=== PATIENT | female | born 1990 | race Caucasian/White ===

== ENCOUNTER 2016-11-26 10:57 | Emergency (ER) | payer BC ==
[~2016-11-26] VITALS: Ht 162.6 cm; Wt 81.2 kg
[2016-11-26] MEDS ORDERED: PNVPAK (11:35)
[2016-11-26] MEDS ORDERED: FLUTI44I INH (11:35)
[2016-11-26] MEDS ORDERED: ALBU1.25 NEB (11:35)
[2016-11-26] MEDS ORDERED: MONT10TA2 PO (11:35)
[2016-11-26] MEDS ORDERED: SALM50I INH (11:35)
[2016-11-26] MEDS ORDERED: CLAR10CA3 PO (11:35)
--- NOTE | 2016-11-26 12:18 | PD ---
HPI Chief Complaint Lower abdominal pain Date Seen: Nov 26, 2016 Travel History International Travel<30 Days: No Contact w/Intl Traveler<30Days: No Known Affected Area: No History of Present Illness HPI G1 at 38w 5d with c/o lower abdominal pain since 0200. Patient reports pain as dull, crampy. Denies ctxs/LOF/VB. Reports last cervical exam in office as FT dilated. Denies urinary/bowel problems. Para: 0 : 1 History Past Medical History Narrative Medical Asthma- no recents exaccerbations Past Surgical History Surgical History: No Previous Surgery Family History Family History: Negative Social History Alcohol Use: No Tobacco Use: No Substance Abuse: No Allergies-Medications Comments NKDA Home Meds Reported Medications W/O Vit A W/ Fe Carbo (Pnv Ob+Dha 27-1 & 250 mg)1 Anshul Anshul 11/26/16 Montelukast (Singulair)10 Mg Tab10 Mg PO HS #30 TAB Ref 0 11/26/16 Albuterol Neb 1.25 Mg/3 Ml Neb1.25 Mg NEB Q4HR NEB PRN (SHORTNESS OF BREATH) # 50 NEBULE Ref 0 11/26/16 Loratadine (Claritin)10 Mg Cap10 Mg PO DAILY Ref 0 11/26/16 Fluticasone 10.6 GM Inh (Flovent Hfa 10.6 GM Inh)44 Mcg/Act Inh2 Puff INH BID # 1 INHALER Ref 0 Use daily at the same time. 11/26/16 Salmeterol Inh (Serevent Diskus Inh)50 Mcg/Act Aero50 Mcg INH BID #1 INHALER Ref 0 11/26/16 Physical Exam Narrative GENERAL: Well-nourished, well-developed patient. SKIN: Warm and dry. HEAD: Normocephalic and atraumatic. EYES: No scleral icterus. No injection or drainage. ENT: No nasal drainage noted. Mucous membranes pink. Airway patent. NECK: Supple, trachea midline. No JVD. CARDIOVASCULAR: Regular rate and rhythm without murmurs, gallops, or rubs. RESPIRATORY: Breath sounds equal bilaterally. No accessory muscle use. BREASTS: Bilateral exam showed no masses , no retractions, no nipple discharge. ABDOMEN/GI: Abdomen soft, non-tender, bowel sounds present, no rebound, no guarding Gravid to [-] weeks size Fundal Height: [-] GENITOURINARY: External Genitalia: intact and normal in appearance BUS glands: [-] Cervix: [-] Dilatation: [FT] Effacement: [20] Station: [-3] Presentation: [-] Membranes: [intact or ruptured] Uterine Contractions: [irritibility] FHT's: Category: [1] Baseline: [130s] Reactive: [reactive] Variability: [moderate] Decels: [none] EXTREMITIES: No cyanosis or edema. BACK: Nontender without obvious deformity. No CVA tenderness. NEUROLOGICAL: Awake and alert. Motor and sensory grossly within normal limits. Five out of 5 muscle strength in all muscle groups. Normal speech. Data Data Vital Signs Reviewed: Yes Orders Unable to void, voided prior to arrival MDM Interpretation(s) IUP at 38w 5d with lower abdominal pain Plan Will d/c home with labor precautions. Patient to keep schedule appt with OB provider in 2 days. All questions answered. Diagnosis Diagnosis: Primary Impression: 38 weeks gestation of Additional Impressions: Abdominal pain during in third trimester False labor after 37 completed weeks of gestation Disposition: 01 DISCHARGE HOME Alexandrea Coreas MD Nov 26, 2016 12:18
[2016-11-26 13:35] LABS: BLOOD, URINE NEG (NEG); COMMENT (UR) CULT NOT INDICATED; CULTURE IF INDICATED CULT NOT INDICATED; GLUCOSE,URINE NEG (NEG); KETONE, URINE NEG (NEG); MUCUS URINE FEW /lpf (OCC); NITRITE,URINE NEG (NEG); PH, URINE 6.5 (5.0-8.5); SQUAMOUS EPITHELIAL CELL URINE <1 /hpf (0-5); URINE COLOR LIGHT-YELLOW (YELLW/STRAW)
== END 2016-11-26 13:00 | disposition home or self-care (01) ==
LOC: HOBED 10:57
DX: O26.893 Other specified pregnancy related conditions, third trimester (principal); R10.9 Unspecified abdominal pain; Z3A.38 38 weeks gestation of pregnancy
CPT/HCPCS: 59025; 81001

== ENCOUNTER 2016-11-26 21:48 | Emergency (ER) | payer BC ==
[~2016-11-26 21:48] MED LIST: ALBU1.25 NEB; CLAR10CA3 PO; FLUTI44I INH; MONT10TA2 PO; PNVPAK; SALM50I INH
--- NOTE | 2016-11-26 22:15 | PD ---
HPI Travel History International Travel<30 Days: No Contact w/Intl Traveler<30Days: No Known Affected Area: No History of Present Illness HPI G1 at 38w 5d presenting with c/o lower abdominal cramping. Patient seen earlier today with similar complaints. Denies LOF/VB. Reports good FM. Para: 0 : 1 Last Menstrual Period: Nov 26, 2016 History Past Medical History Medical History: Denies Significant Hx Past Surgical History Surgical History: No Previous Surgery Family History Family History: Negative Social History Alcohol Use: No Tobacco Use: No Substance Abuse: No Allergies-Medications Home Meds Reported Medications W/O Vit A W/ Fe Carbo (Pnv Ob+Dha 27-1 & 250 mg)1 Anshul Anshul 11/26/16 Montelukast (Singulair)10 Mg Tab10 Mg PO HS #30 TAB Ref 0 11/26/16 Albuterol Neb 1.25 Mg/3 Ml Neb1.25 Mg NEB Q4HR NEB PRN (SHORTNESS OF BREATH) # 50 NEBULE Ref 0 11/26/16 Loratadine (Claritin)10 Mg Cap10 Mg PO DAILY Ref 0 11/26/16 Fluticasone 10.6 GM Inh (Flovent Hfa 10.6 GM Inh)44 Mcg/Act Inh2 Puff INH BID # 1 INHALER Ref 0 Use daily at the same time. 11/26/16 Salmeterol Inh (Serevent Diskus Inh)50 Mcg/Act Aero50 Mcg INH BID #1 INHALER Ref 0 11/26/16 Physical Exam AFVSS BP 122/76 Narrative GENERAL: Well-nourished, well-developed patient. SKIN: Warm and dry. HEAD: Normocephalic and atraumatic. EYES: No scleral icterus. No injection or drainage. ENT: No nasal drainage noted. Mucous membranes pink. Airway patent. NECK: Supple, trachea midline. No JVD. CARDIOVASCULAR: Regular rate and rhythm without murmurs, gallops, or rubs. RESPIRATORY: Breath sounds equal bilaterally. No accessory muscle use. BREASTS: Bilateral exam showed no masses , no retractions, no nipple discharge. ABDOMEN/GI: Abdomen soft, non-tender, bowel sounds present, no rebound, no guarding Gravid to [-] weeks size Fundal Height: [-] GENITOURINARY: External Genitalia: intact and normal in appearance BUS glands: [-] Cervix: [no change analyst 1-2 hours per RN exam] Dilatation: [1] Effacement: [60] Station: [3] Presentation: [-] Membranes: [intact or ruptured] Uterine Contractions: [irregular] FHT's: Category: [1] Baseline: [130s] Reactive: [reactive] Variability: [moderate] Decels: [none] EXTREMITIES: No cyanosis or edema. BACK: Nontender without obvious deformity. No CVA tenderness. NEUROLOGICAL: Awake and alert. Motor and sensory grossly within normal limits. Five out of 5 muscle strength in all muscle groups. Normal speech. Data Data Vital Signs Reviewed: Yes MDM Interpretation(s) IUP at 38w 5d, irregular contractions Plan Will monitor patient and recheck. If no cervical change, will d/c home. All questions answered. Vistaril 50mg given prior to d/c. Diagnosis Diagnosis: Primary Impression: 38 weeks gestation of Additional Impression: Irregular uterine contractions Disposition: DISCHARGE HOME Condition: Good Alexandrea Coreas MD Nov 26, 2016 22:15
== END 2016-11-27 10:23 | disposition home or self-care (01) ==
LOC: HOBED 21:48
DX: O62.2 Other uterine inertia (principal); Z3A.38 38 weeks gestation of pregnancy
CPT/HCPCS: 59025

== ENCOUNTER 2016-11-28 08:44 | Inpatient (IN) | payer BC ==
[2016-11-28] VITALS (53 sets, daily range): BP systolic 97–147; BP diastolic 50–99; PULSE 50–145; RESP 16–20; TEMP 98.1–98.4; O2SAT 94–100
[~2016-11-28] VITALS: Ht 162.6 cm; Wt 81.0 kg
[2016-11-28] MEDS ORDERED: LACTATED RINGER'S 1000 ML INJ 1,000 ML IV SCH (09:35)
--- NOTE | 2016-11-28 09:35 | HHI.HP ---
HPI Chief Complaint Contraction pain for the last 40 hours Date Seen: Nov 28, 2016 Travel History International Travel<30 Days: No Contact w/Intl Traveler<30Days: No Known Affected Area: No History of Present Illness HPI Patient is 26-year-old white female at [address] Gomez for care presents complaining of contraction pain the last 48 hours this been in her words nonstop, she denies bleeding or ruptured membranes. Baby is active heart rate tracing is reactive and her contractions are not showing up well on the monitor. Para: 0 : 1 History Past Medical History Medical History: Denies Significant Hx Allergies-Medications (Allergen,Severity, Reaction): Coded Allergies: No Known Allergies (Unverified , 11/27/16) Home Meds Reported Medications W/O Vit A W/ Fe Carbo (Pnv Ob+Dha 27-1 & 250 mg)1 Anshul Anshul 11/26/16 Montelukast (Singulair)10 Mg Tab10 Mg PO HS #30 TAB Ref 0 11/26/16 Albuterol Neb 1.25 Mg/3 Ml Neb1.25 Mg NEB Q4HR NEB PRN (SHORTNESS OF BREATH) # 50 NEBULE Ref 0 11/26/16 Loratadine (Claritin)10 Mg Cap10 Mg PO DAILY Ref 0 11/26/16 Fluticasone 10.6 GM Inh (Flovent Hfa 10.6 GM Inh)44 Mcg/Act Inh2 Puff INH BID # 1 INHALER Ref 0 Use daily at the same time. 11/26/16 Salmeterol Inh (Serevent Diskus Inh)50 Mcg/Act Aero50 Mcg INH BID #1 INHALER Ref 0 11/26/16 Review of Systems General / Constitutional: No: Fever, Weight Gain, Chills, Other Eyes: No: Diploplia, Blurred Vision, Visual changes, Pain, Photophobia HENT: No: Headaches, Vertigo, Lightheadedness Cardiovascular: No: Irregular Rhythm, Chest Pain or Discomfort, Palpitations, Tachycardia, Syncope, Varicosities, Edema, Cyanosis Respiratory: No: Cough, Short of Breath, Other Gastrointestinal: No: Nausea, Vomiting, Diarrhea Genitourinary: No: Decreased Urinary Output, Oliguria Musculoskeletal: No: Limited ROM, Weakness, Cramping, Edema, Pain Skin: No Rash, No Itching, No Dryness, No Lumps, No Change in Pigmentation, No Change in Nails, No Alopecia, No Lesions Neurologic: No: Weakness, Dizziness, Syncope, Focal Abnormalities, Coordination Problem, Headache, Slurred Speech, Seizures Psychiatric: No: Depression, Suicidal Ideations, Homicidal Ideation Endocrine: No: Heat Intolerance, Cold Intolerance, Polydipsia, Polyuria, Other Physical Exam Narrative GENERAL: Well-nourished, well-developed patient. SKIN: Warm and dry. HEAD: Normocephalic and atraumatic. EYES: No scleral icterus. No injection or drainage. ENT: No nasal drainage noted. Mucous membranes pink. Airway patent. NECK: Supple, trachea midline. No JVD. CARDIOVASCULAR: Regular rate and rhythm without murmurs, gallops, or rubs. RESPIRATORY: Breath sounds equal bilaterally. No accessory muscle use. BREASTS: Bilateral exam showed no masses , no retractions, no nipple discharge. ABDOMEN/GI: Abdomen soft, non-tender, bowel sounds present, no rebound, no guarding Gravid to [38-] weeks size Fundal Height: [38-] GENITOURINARY: External Genitalia: intact and normal in appearance BUS glands: [-] Cervix: [-] Dilatation: [-4] Effacement: [100-] Station: [0] Presentation: [-vtx] Membranes: [intact ] Uterine Contractions: [reg-] FHT's: Category: [-1] Baseline: [133-] Reactive: [yes-] Variability: [-mod] Decels: [none-] EXTREMITIES: No cyanosis or edema. BACK: Nontender without obvious deformity. No CVA tenderness. NEUROLOGICAL: Awake and alert. Motor and sensory grossly within normal limits. Five out of 5 muscle strength in all muscle groups. Normal speech. Assessment/Plan Assessment and Plan This patient is 26-year-old white female at 39 weeks presents complaining of contraction pain for 1-2 days. No bleeding or rupture the membranes heart rate tracing is reactive contractions not showing well-developed on the monitor however her cervix is 4 cm 100 percent effaced and 0 station at this time. And admit for labor anticipate vaginal delivery Sachin Capellan II, MD Nov 28, 2016 09:35
[2016-11-28] MEDS ORDERED: LIDOCAINE HCL 1% 50 ML VIAL INFIL PRN (09:45)
[2016-11-28] MEDS ORDERED: LIDOCAINE HCL 1% 50 ML VIAL I-DERMAL PRN (09:45)
[2016-11-28] MEDS ORDERED: MINERAL OIL 10 ML VIAL TOPICAL PRN (09:45)
[2016-11-28] MEDS ORDERED: OXYTOCIN 30 UNITS-500ML PREMIX 500 ML IV ONE (09:45)
[2016-11-28] MEDS ORDERED: SODIUM CHLORID 0.9% 500 ML INJ 500 ML IV PRN (09:45)
[2016-11-28] MEDS ORDERED: CITRIC ACID-SODIUM CITRATE LIQ 30 ML UDC PO SCH (09:45)
[2016-11-28] MEDS ORDERED: SODIUM CHLOR 0.9% 1000 ML INJ 1,000 ML IV PRN (09:55)
[2016-11-28 10:38] LABS: BACTERIA, URINE RARE /hpf; BLOOD, URINE TRACE (NEG); COMMENT (UR) CULTURE INDICATED; CULTURE IF INDICATED CULTURE INDICATED; GLUCOSE,URINE NEG (NEG); KETONE, URINE NEG (NEG); MUCUS URINE FEW /lpf (OCC); NITRITE,URINE NEG (NEG); PH, URINE 6.5 (5.0-8.5); SQUAMOUS EPITHELIAL CELL URINE 2 /hpf (0-5); URINE COLOR LIGHT-YELLOW (YELLW/STRAW)
[2016-11-28 10:49] LABS: AUTOMATED NEUTROPHIL # 11.3 TH/MM3 (1.8-7.7); BASOPHIL % 0.2 % (0.0-2.0); EOSINOPHIL % 0.1 % (0.0-4.0); HEMATOCRIT 35.5 % (35.0-46.0); HEMO FLAGS DIFF FINAL; LYMPH % 10.1 % (9.0-44.0); LYMPHOCYTE # 1.4 TH/MM3 (1.0-4.8); MEAN CORPUSCULAR HEMOGLOBIN 28.6 PG (27.0-34.0); MEAN CORPUSCULAR HGB CONC 34.1 % (32.0-36.0); MONO % 6.2 % (0.0-8.0); NEUT % 83.4 % (16.0-70.0); PLATELET COUNT 179 TH/MM3 (150-450); RED BLOOD COUNT 4.23 MIL/MM3 (4.00-5.30); RED CELL DISTRIBUTION WIDTH 13.5 % (11.6-17.2); WHITE BLOOD COUNT 13.5 TH/MM3 (4.0-11.0)
[2016-11-28] MEDS: LACTATED RINGER'S 1000 ML INJ 1,000 ML IV PRN ×2 (11:27→14:26)
[2016-11-28] MEDS ORDERED: fentaNYL 2MCG-BUPIV 0.125% INJ 100 ML ONE (11:32)
[2016-11-28] MEDS ORDERED: ePHEDrine/NS 25 MG/5 ML SYR ONE (11:33)
[2016-11-28] MEDS ORDERED: fentaNYL 2MCG-BUPIV 0.125% 100 ML EPIDURAL SCH (13:15)
[2016-11-28] MEDS ORDERED: OXYTOCIN 30 UNITS-500ML PREMIX 500 ML IV SCH (13:15)
[2016-11-28] MEDS ORDERED: ePHEDrine/NS 25 MG/5 ML SYR IV PRN (13:15)
[2016-11-28] MEDS ORDERED: NO SYSTEM NARCOTICS XX PRN (13:15)
[2016-11-28] MEDS ORDERED: DO NOT ADMINISTER ANTICOAGULANTS XX PRN (13:15)
[2016-11-28] MEDS ORDERED: DOCUSATE SODIUM 50 MG/SENNA 8.6 MG TAB PO PRN (18:30)
[2016-11-28] MEDS ORDERED: oxyCODONE/ACETAMINOPHEN 5 MG/325 MG TAB PO PRN (18:30)
[2016-11-28] MEDS ORDERED: ONDANSETRON ODT 4 MG TAB PO PRN (18:30)
[2016-11-28] MEDS ORDERED: ALUMINUM/MAGNESIUM/SIMETH 30 ML CUP PO PRN (18:30)
[2016-11-28] MEDS ORDERED: BENZOCAINE 20% TOPICAL SPRAY 60 ML CAN TOPICAL PRN (18:30)
[2016-11-28] MEDS ORDERED: WITCH HAZEL 50%/GLYCERIN 12.5% 40 PAD JAR TOPICAL PRN (18:30)
[2016-11-28] MEDS ORDERED: SODIUM CHLORIDE 0.9% FLUSH 5 ML FLUSH IV PRN (18:30)
[2016-11-28] MEDS ORDERED: ACETAMINOPHEN 325 MG TAB PO PRN (18:30)
[2016-11-28] MEDS ORDERED: OXYTOCIN 10 UNIT/ML AMP XX PRN (18:30)
--- NOTE | 2016-11-28 18:30 | PD.OB.DELI ---
Anesthesia: Epidural Episiotomy: None Vaginal Delivery: Normal Presentation: Occiput anterior, Compound (left UE) Nuchal Cord: None Delayed cord clamping (45 sec): Yes Shoulder Dystocia: Woo maneuver done : Male One Minute : 8 Five Minute : 9 Care: Suctioned, Spontaneous crying, Responded to stimulation Placenta: Spontaneous delivery, Intact, 3 vessel cord Laceration: Vaginal laceration, 1 deg (right labial/vaginal) Repair: Vicryl Julio Alcala MD Nov 28, 2016 18:30
[2016-11-28] MEDS ORDERED: MEASLES, MUMPS, RUBELLA VACCINE 0.5 ML VIAL SQ ONE (19:00)
[2016-11-28] MEDS ORDERED: DIPHTH/TETANUS/ACEL PERTUSSIS (BOOSTER) 0.5 ML VIAL/PFS IM ONE (19:00)
[2016-11-28] MEDS ORDERED: ZOLPIDEM TARTRATE 5 MG TAB PO PRN (21:00)
[2016-11-28] MEDS ORDERED: SODIUM CHLORIDE 0.9% FLUSH 5 ML FLUSH IV SCH (21:00)
[2016-11-29] VITALS: BP 89/45; PULSE 65; RESP 18; TEMP 98.2
[2016-11-29] MEDS: IBUPROFEN 600 MG TAB PO PRN (03:27)
[2016-11-29 08:34] VITALS: BP 120/70; PULSE 82; RESP 18; TEMP 98
--- NOTE | 2016-11-29 09:48 | HHI.OB ---
Subjective Post Day: 1 Remarks doing well, mod lochia Objective Vitals/I&O Vital Signs Date Time Temp Pulse Resp B/P Pulse Ox O2 Delivery O2 Flow Rate FiO2 11/29/16 08:34 82 18 120/70 11/29/16 08:34 98.0 11/29/16 00:00 98.2 65 18 89/45 11/28/16 19:03 18 11/28/16 19:00 78 116/76 11/28/16 18:55 18 11/28/16 18:45 80 116/78 11/28/16 18:40 18 11/28/16 18:40 98.4 11/28/16 18:31 82 125/70 11/28/16 18:30 18 11/28/16 17:45 93 120/77 11/28/16 17:31 79 124/69 11/28/16 17:13 145 133/83 11/28/16 17:00 98.2 11/28/16 17:00 80 116/90 11/28/16 16:59 16 11/28/16 16:45 79 111/63 11/28/16 16:30 71 116/72 11/28/16 16:16 73 110/72 11/28/16 16:01 75 147/83 11/28/16 15:45 57 126/71 11/28/16 15:30 60 98/60 11/28/16 15:15 61 108/55 11/28/16 15:01 55 98/50 11/28/16 15:00 16 11/28/16 14:45 59 122/76 11/28/16 14:30 57 107/54 11/28/16 14:22 98.1 16 11/28/16 14:15 59 104/53 11/28/16 14:00 55 100/55 11/28/16 13:56 63 97/60 11/28/16 13:53 16 11/28/16 13:51 50 116/64 11/28/16 13:20 58 117/64 11/28/16 13:16 76 113/90 11/28/16 13:15 17 11/28/16 13:15 72 11/28/16 13:15 100 11/28/16 13:10 56 11/28/16 13:10 72 124/88 11/28/16 13:10 100 11/28/16 13:05 100 11/28/16 13:05 69 127/83 11/28/16 13:05 64 11/28/16 13:00 74 122/78 11/28/16 13:00 100 11/28/16 13:00 57 11/28/16 12:55 64 11/28/16 12:55 73 130/78 11/28/16 12:55 99 11/28/16 12:50 94 11/28/16 12:50 137 125/84 11/28/16 12:50 65 11/28/16 12:46 92 130/65 11/28/16 12:45 64 11/28/16 12:45 16 11/28/16 12:45 100 11/28/16 12:40 100 11/28/16 12:40 64 115/66 11/28/16 12:40 51 11/28/16 12:35 62 117/68 11/28/16 12:35 56 11/28/16 12:35 100 11/28/16 12:30 60 112/66 11/28/16 12:30 100 11/28/16 12:30 55 11/28/16 12:30 16 11/28/16 12:25 61 112/65 11/28/16 12:25 100 11/28/16 12:25 56 11/28/16 12:20 67 115/69 11/28/16 12:20 100 11/28/16 12:20 59 11/28/16 12:15 100 11/28/16 12:15 70 11/28/16 12:15 64 121/73 11/28/16 12:10 87 104/91 11/28/16 12:10 100 11/28/16 12:10 91 11/28/16 12:08 87 137/96 11/28/16 12:07 93 139/96 11/28/16 12:05 100 11/28/16 12:05 91 139/99 11/28/16 12:05 89 11/28/16 12:00 18 11/28/16 12:00 84 11/28/16 12:00 80 128/93 11/28/16 12:00 100 11/28/16 11:57 71 122/78 11/28/16 11:17 67 127/81 11/28/16 10:15 98.4 20 Objective Remarks GENERAL: Well-nourished, well-developed patient. CARDIOVASCULAR: Regular rate and rhythm without murmurs, gallops, or rubs. RESPIRATORY: Breath sounds equal bilaterally. No accessory muscle use. ABDOMEN/GI: Abdomen soft, non-tender. Fundus: Firm, non-tender at umbilicus. GENITOURINARY: Light to moderate bleeding. EXTREMITIES: No cyanosis or edema, non-tender, without signs of DVT. Medications and IVs Current Medications Medications (Trade) Dose Ordered Sig/Omari Route Start Time Stop Time Status Last Admin Lactated Ringer's 1,000 ml @ 125 mls/hr Q8H IV 11/28/16 09:35 Lactated Ringer's 1,000 ml @ 3,000 mls/hr Q20M PRN IV 11/28/16 09:35 11/28/16 14:26 (NS 1000 ml Inj) 1,000 ml @ 100 mls/hr Q10H PRN IV 11/28/16 09:55 (fentaNYL INJ) 50 mcg Q1H PRN IV PUSH 11/28/16 09:45 (fentaNYL INJ) 100 mcg Q1H PRN IV PUSH 11/28/16 09:45 (Muri-Lube Oil) 10 ml UNSCH PRN TOPICAL 11/28/16 09:45 11/28/16 18:39 Miscellaneous Information No systemic narcotics to be given except... UNSCH PRN XX 11/28/16 13:15 11/29/16 13:14 Miscellaneous Information DO NOT ADMINISTER ANY ANTICOAGUL... UNSCH PRN XX 11/28/16 13:15 11/29/16 13:14 (fentaNYL 2MCG-BUPIV 0.125% INJ) 100 ml @ 0 mls/hr TITRATE EPIDURAL 11/28/16 13:15 Ephedrine Sulfate 10 mg 10 mg UNSCH PRN IV 11/28/16 13:15 11/29/16 13:14 (Pitocin 30 Units-NS 500 ml Premix) 500 ml @ 0 mls/hr TITRATE IV 11/28/16 13:15 11/28/16 13:47 (NS Flush) 2 ml BID IV 11/28/16 21:00 (NS Flush) 2 ml UNSCH PRN IV 11/28/16 18:30 (Tylenol) 650 mg Q4H PRN PO 11/28/16 18:30 (Motrin) 600 mg Q6H PRN PO 11/28/16 18:30 11/29/16 03:27 (Percocet 5-325 Mg) 1 tab Q4H PRN PO 11/28/16 18:30 (Americaine 20% Top Spr) 1 spray Q4H PRN TOPICAL 11/28/16 18:30 11/28/16 20:45 (Tucks Pads) 1 applic QID PRN TOPICAL 11/28/16 18:30 11/28/16 20:45 (Alivia-Colace) 2 tab Q12H PRN PO 11/28/16 18:30 (Ambien) 5 mg HS PRN PO 11/28/16 21:00 (Mag-Al Plus Susp Liq) 15 ml Q8H PRN PO 11/28/16 18:30 (Zofran Odt) 4 mg Q6H PRN PO 11/28/16 18:30 Assessment/Plan Assessment and Plan This patient is 26-year-old white female s/p at 39 weeks PPD - 1 cont routine care circ today Julieth Sanabria MD Nov 29, 2016 09:48
[2016-11-30] MEDS: IBUPROFEN 600 MG TAB PO PRN ×2 (00:56→08:04)
[2016-11-30 08:00] VITALS: BP 121/74; PULSE 97; RESP 18; TEMP 98.4
--- NOTE | 2016-11-30 08:03 | HHI.OB ---
Subjective Post Day: 1 Remarks doing well PPD 1 nursing no issues Objective Vitals/I&O Vital Signs Date Time Temp Pulse Resp B/P Pulse Ox O2 Delivery O2 Flow Rate FiO2 11/29/16 08:34 82 18 120/70 11/29/16 08:34 98.0 Objective Remarks GENERAL: Well-nourished, well-developed patient. CARDIOVASCULAR: Regular rate and rhythm without murmurs, gallops, or rubs. RESPIRATORY: Breath sounds equal bilaterally. No accessory muscle use. ABDOMEN/GI: Abdomen soft, non-tender. Fundus: Firm, non-tender at umbilicus. GENITOURINARY: Light to moderate bleeding. EXTREMITIES: No cyanosis or edema, non-tender, without signs of DVT. Medications and IVs Current Medications Medications (Trade) Dose Ordered Sig/Omari Route Start Time Stop Time Status Last Admin Lactated Ringer's 1,000 ml @ 125 mls/hr Q8H IV 11/28/16 09:35 Lactated Ringer's 1,000 ml @ 3,000 mls/hr Q20M PRN IV 11/28/16 09:35 11/28/16 14:26 (NS 1000 ml Inj) 1,000 ml @ 100 mls/hr Q10H PRN IV 11/28/16 09:55 (fentaNYL INJ) 50 mcg Q1H PRN IV PUSH 11/28/16 09:45 (fentaNYL INJ) 100 mcg Q1H PRN IV PUSH 11/28/16 09:45 Mineral Oil 10 ml 10 ml UNSCH PRN TOPICAL 11/28/16 09:45 11/28/16 18:39 Fentanyl/ Bupivacaine HCl 100 ml @ 0 mls/hr TITRATE EPIDURAL 11/28/16 13:15 (Pitocin 30 Units-NS 500 ml Premix) 500 ml @ 0 mls/hr TITRATE IV 11/28/16 13:15 11/28/16 13:47 (NS Flush) 2 ml BID IV 11/28/16 21:00 (NS Flush) 2 ml UNSCH PRN IV 11/28/16 18:30 (Tylenol) 650 mg Q4H PRN PO 11/28/16 18:30 (Motrin) 600 mg Q6H PRN PO 11/28/16 18:30 11/30/16 00:56 (Percocet 5-325 Mg) 1 tab Q4H PRN PO 11/28/16 18:30 (Americaine 20% Top Spr) 1 spray Q4H PRN TOPICAL 11/28/16 18:30 11/28/16 20:45 (Tucks Pads) 1 applic QID PRN TOPICAL 11/28/16 18:30 11/28/16 20:45 (Alivia-Colace) 2 tab Q12H PRN PO 11/28/16 18:30 11/30/16 00:56 (Ambien) 5 mg HS PRN PO 11/28/16 21:00 (Mag-Al Plus Susp Liq) 15 ml Q8H PRN PO 11/28/16 18:30 (Zofran Odt) 4 mg Q6H PRN PO 11/28/16 18:30 Assessment/Plan Assessment and Plan PPD 2 doing well home today Shahla Menjivar MD Nov 30, 2016 08:03
[2016-11-30] MEDS ORDERED: IBUP-232 PO (08:05)
--- NOTE | 2016-11-30 08:06 | HHI.DCPOC ---
Discharge Care Plan Report Symptoms to Your Doctor -Temperate above 100.5 degrees -Redness, of incision or excessive or foul smelling drainage -Unusual pain or calf pain -Increased vaginal bleeding -Painful or difficulty urinating -Feelings of extreme sadness or anxiety after 2 weeks Goals to Promote Your Health * To prevent worsening of your condition and complications * To maintain your health at the optimal level Directions to Meet Your Goals Take your medications as prescribed Follow your dietary instruction Follow activity as directed Ensure plenty of rest for recovery Drink fluids for hydration Keep your appointments as scheduled Take your immunizations and boosters as scheduled If your symptoms worsen call your PCP, if no PCP go to Urgent Care Center or Emergency Room Smoking is Dangerous to Your Health. Avoid second hand smoke Call the 24-hour crisis hotline for domestic abuse at Shahla Menjivar MD Nov 30, 2016 08:05
== END 2016-11-30 15:17 | disposition home or self-care (01) | DRG 775 ==
LOC: HOBED 08:44 → H2EA 09:37 → H1EA 20:03
PROVIDERS: ADMIT Obstetrics & Gynecology; ATTEND Obstetrics & Gynecology
PROC: 10E0XZZ Delivery of Products of Conception, External Approach (ICD-10-PCS; principal; 2016-11-28)
PROC: 0HQ9XZZ Repair Perineum Skin, External Approach (ICD-10-PCS; 2016-11-28)
DX: O66.0 Obstructed labor due to shoulder dystocia (principal); O70.0 First degree perineal laceration during delivery; Z3A.39 39 weeks gestation of pregnancy; Z37.0 Single live birth
CPT/HCPCS: 59025; 81001; 85025; 86900; 86901; 87086; 99285; J2590; J7120

== ENCOUNTER 2018-06-10 10:07 | Inpatient (IN) ==
--- NOTE | 2018-06-09 18:14 | MH ---
cc: Julio Olmedo MD DATE OF ADMISSION: 06/10/2018 HISTORY OF PRESENT ILLNESS: The patient is a 28-year-old female, 2, para 1, previous vaginal delivery in 2016 of a healthy male infant. The patient's course has been marked by breech presentation of this with developing oligohydramnios. The patient's previous JUAN was 6.98 on 06/04/2018 and followup study today revealed an JUAN of 2.5. The remainder of the biophysical profile was reactive and normal. Good movement is documented. Given the circumstances, this patient has been scheduled for a primary section due to oligohydramnios and breech presentation. The patient's obstetrical course notable for a diastasis pubis developing in the late third trimester, remedied by pelvic rest and physical therapy. The patient's group B strep status is negative. The patient's diabetic screening was normal. The patient's blood type is AB positive. Genetic testing was normal. ALLERGIES: NO KNOWN DRUG ALLERGIES. PAST MEDICAL HISTORY: He has a history of asthma that is well controlled. The patient uses Breo and Singulair with albuterol nebulizer as needed. PAST SURGICAL HISTORY: As stated above. Spontaneous vaginal delivery 11/2016 of a male weighing 7 pounds 4 ounces. FAMILY HISTORY: Noncontributory. SOCIAL HISTORY: The patient is and works as a physical therapist. Denies use of alcohol, tobacco, or illicit substances. PHYSICAL EXAMINATION: GENERAL: Well-appearing, well-nourished female, in no acute distress. VITAL SIGNS: Stable. Blood pressure is 120/80, pulse and respiratory rate are normal. heart tones are in the 140s. HEENT: Shows no adenopathy or thyromegaly. LUNGS: Clear in all perales. CARDIAC: Regular rate and rhythm. ABDOMEN: Gravid, full-term estimated weight is 8 pounds. Breech presentation confirmed by ultrasound. PELVIC: Cervix is closed. EXTREMITIES: Symmetrical, full range of motion. There is no cyanosis, clubbing, or edema. NEUROLOGIC: Grossly intact. ASSESSMENT AND PLAN: The patient is 38 weeks and 6 days today, will be scheduled for primary section tomorrow, 06/10, and she will be 39 weeks even. The patient is with oligohydramnios. No history of ruptured membranes. The patient's medical history is asthma controlled with the use of Breo 200 mg daily, Singulair, and Albuterol nebulizer as needed. MD ANGELITA Suh/addy , 05:37 PM , 05:45 PM
[2018-06-10] MEDS ORDERED: Citric Acid/Sodium Citrate Liq 30 ML UDC PO SCH (11:15)
[2018-06-10] MEDS ORDERED: Morphine Sulfate PF Inj 5 MG/10 ML Ampul ONE (11:36)
[2018-06-10 11:41] LABS: Baso % (Auto) 0.5 % (0.0-2.0); Eos # (Auto) 0.1 th/mm3 (0.0-0.4); Hematocrit 33.7 % (35.0-46.0); Hemoglobin 11.1 gm/dL (11.6-15.3); Lymph # (Auto) 1.6 th/mm3 (1.0-4.8); Lymph % (Auto) 19.6 % (9.0-44.0); Mean Corpuscular HGB Conc 32.9 % (32.0-36.0); Mean Corpuscular Hemoglobin 27.1 pg (27.0-34.0); Mean Corpuscular Volume 82.4 fL (80.0-100.0); Mean Platelet Volume 11.6 fL (7.0-11.0); Mono # (Auto) 0.7 th/mm3 (0.0-0.9); Mono % (Auto) 8.6 % (0.0-8.0); Neut # (Auto) 5.6 th/mm3 (1.8-7.7); Neut % (Auto) 70.3 % (16.0-70.0); Platelet Count 160 th/mm3 (150-450); Red Blood Count 4.09 mil/mm3 (4.00-5.30); Red Cell Distribution Width 14.4 % (11.6-17.2)
[2018-06-10] MEDS ORDERED: Phenylephrine/NS 1000 MCG/10ML Syringe IV.PUSH ONE (12:00)
[2018-06-10] MEDS ORDERED: Glycopyrrolate Inj 1 MG/5 ML Syringe IV.PUSH ONE (12:01)
[2018-06-10] MEDS ORDERED: Ketorolac Inj 30 MG/ML (IVP) Vial IV.PUSH ONE (12:40)
--- NOTE | 2018-06-10 13:02 | P.OBDELI ---
Procedure Note Performed by: Julio Olmedo MD Procedure: Primary Low Transverse Section Indication for Delivery: malposition (ashtyn breech) Informed Consent Obtained: For anesthesia, For procedure Confirmed Correct: Patient, Procedure, Site, Time-out taken Anesthesia: Spinal Medication Prior to Procedure: As documented in eMAR Monitoring During Procedure: Blood pressure monitoring, insurance office manager, doppler, Pulse oximetry Urinary Catheter: Inserted using sterile technique, To dependent drainage Sterile Preparation: Duraprep, In usual fashion Position: Supine with wedge to right side, Supine with safety belt applied - Operative Features Skin Incision: Pfannenstiel Uterine Incision: Low transverse w/knife / scissors Membranes Ruptured: Artificially Presentation: Breech Status of : Viable, Cord blood, Umbilical cord, Nursery present, Resuscitation required Placenta Delivered: Intact Medications: Antibiotics, Oxytocin Estimated blood loss (mL): 750 Procedure Tolerated: Well Maternal Condition: Stable Baby Complications: Respiratory distress, Other (nuchal cord x4) Baby Condition: Stable - Infant: Male Infant Delivery Date: 06/10/18 score (1 min): 7 score (5 min): 8
[2018-06-10 13:10] LABS: Cord Arterial Blood HCO3 20.8
[2018-06-10] MEDS ORDERED: Oxytocin 30 Units/500ml Premix 30 UNITS/500 ML BAG IV.SIG ONE (14:00)
--- NOTE | 2018-06-10 14:04 | MP ---
cc: Julio Olmedo MD DATE OF OPERATION: PREOPERATIVE DIAGNOSES: 1. Term intrauterine . 2. History of oligohydramnios. 3. Ashtyn breech presentation. 4. Maternal asthma. PROCEDURE PERFORMED: Primary low transverse section delivery of viable male , breech extraction. POSTOPERATIVE DIAGNOSES: 1. Term intrauterine . 2. History of oligohydramnios. 3. Ashtyn breech presentation. 4. Maternal asthma. ANESTHESIA: Spinal. ESTIMATED BLOOD LOSS: 750 mL DRAINS: Verma to gravity. OPERATIVE FINDINGS: Male delivered by ashtyn breech presentation; breech extraction, nuchal cord identified 4 times. Baby's 's were 7 at 1 minute and 8 at 5. Baby had difficulty with initial respiratory effort. NICU staff and family day care provider were present at the delivery. Three-vessel cord noted. Cord blood gas was sent. Results are pending. INDICATIONS FOR PROCEDURE: The patient was followed for decreasing amniotic fluid. Recent amniotic fluid index was 2.9 on 06/09/2018. Remaining assessment was normal. Infant was breech and elected for primary section. PROCEDURE: The patient received Ancef 2 grams prophylactically. She underwent a spinal anesthetic without complication. She was prepped and draped. Verma was inserted by sterile technique and she has sequentials placed on the lower extremities for VTE prophylaxis. After she was comfortably prepped and draped, a timeout was conducted, agreed by all present in the room. The patient had excellent pain control with the spinal. A Pfannenstiel incision was utilized, taking it through the skin down through the subcutaneous space to the fascia, which was then scored in the midline and extended laterally by sharp dissection, cauterizing any active bleeding with the Bovie. Muscles were in the midline. Peritoneum was identified sharply. Lower uterine segment was identified. There were large venous sinuses at the lower uterine segment. The peritoneum was then opened transversely, placing the bladder blade over the bladder flap. A transverse incision was made in the lower uterine segment. Compression of the sinuses was required. Entry into the uterine cavity was accomplished without difficulty. Light meconium stained fluid was noted. The incision was extended and then by breech extraction, the was delivered without complication. The cord was doubly clamped and cut after entanglement around the neck and then a segment was for cord blood gas. The infant was then taken to the [place] by the NICU staff present and the cord blood sample was obtained from the remaining umbilical cord. Placenta was removed intact with trailing membranes. The uterus was explored. There was no retained tissue. The uterus was then closed with a double layer, first was a running locking suture of 0-Monocryl, followed by a second imbricating suture of 0-Monocryl. Good result was noted. Pelvis was irrigated. All free of blood and clot, and fluid was aspirated and retrieved. Again, hemostasis was documented. A piece of Interceed was introduced and placed over the lower uterine segment to prevent adhesions postoperatively. The peritoneum was then closed with a running suture of 2-0 Monocryl. The muscle body was reapproximated with interrupted mattress suture of 2-0 Monocryl, and then the fascia was closed with 0-Vicryl. Subcutaneous space was reapproximated with a running suture of 2-0 Monocryl after confirming hemostasis, and then closing the skin with tam. Dressing was applied. The final count was correct. The patient was stable and the infant was taken to the NICU with the NICU staff. MD ANGELITA Suh/lucero , 01:09 PM , 01:17 PM
[2018-06-10] MEDS ORDERED: Oxytocin 30 Units/500ml Premix 30 UNITS/500 ML BAG IV.SIG PRN (18:03)
[2018-06-10 19:39] LABS: Bacteria,Urine Rare /hpf; Bilirubin,Urine Negative (Negative); Clarity,Urine Clear (Clear); Color,Urine Yellow (Yellw/Straw); Glucose,Urine (UA) Negative (Negative); Leukocyte Esterase,Urine Negative (Negative); Mucus,Urine Few /lpf (Occasional); Nitrite,Urine Negative (Negative); Specific Gravity,Urine 1.018 (1.002-1.035); Squamous Epithelial Cell,Urine 2 /hpf (0-5)
[2018-06-10 19:42] LABS: Amphetamine Screen,Urine Neg (Neg); Barbiturate Screen,Urine Neg (Neg); Cannabinoid Screen,Urine Neg (Neg); Cocaine Screen,Urine Neg (Neg)
[2018-06-10 19:49] LABS: Opiate Screen,Urine Neg (Neg)
[2018-06-11 06:51] LABS: Baso % (Auto) 0.3 % (0.0-2.0); Eos # (Auto) 0.1 th/mm3 (0.0-0.4); Eos % (Auto) 1.5 % (0.0-4.0); Hematocrit 25.7 % (35.0-46.0); Hemoglobin 8.4 gm/dL (11.6-15.3); Lymph # (Auto) 1.8 th/mm3 (1.0-4.8); Lymph % (Auto) 20.3 % (9.0-44.0); Mean Corpuscular HGB Conc 32.6 % (32.0-36.0); Mean Corpuscular Hemoglobin 26.8 pg (27.0-34.0); Mean Corpuscular Volume 82.2 fL (80.0-100.0); Mean Platelet Volume 11.2 fL (7.0-11.0); Mono # (Auto) 0.8 th/mm3 (0.0-0.9); Mono % (Auto) 8.5 % (0.0-8.0); Neut # (Auto) 6.2 th/mm3 (1.8-7.7); Neut % (Auto) 69.4 % (16.0-70.0); Platelet Count 136 th/mm3 (150-450); Red Blood Count 3.13 mil/mm3 (4.00-5.30); Red Cell Distribution Width 14.6 % (11.6-17.2); White Blood Count 8.9 th/mm3 (4.0-11.0)
[2018-06-11] MEDS ORDERED: Measles/Mumps/Rubella Vaccine Inj 0.5 ML Vial SQ ONE (16:00)
[2018-06-11] MEDS ORDERED: Diphtheria/Tetanus/Pertussis Vaccine Inj 0.5 ML Syringe IM ONE (16:00)
--- NOTE | 2018-06-11 17:57 | P.PNOB ---
Subjective Post op day: 1 Interval history: Doing well after section yesterday at noon for breech. Baby just out of NICU and needs to wait for circumcision nursing Objective Vital Signs/I&O: Vital Signs 06/10/18 19:58 06/11/18 00:00 06/11/18 04:00 Temperature 98.0 F 98.3 F 98.1 F Pulse Rate 79 71 71 Respiratory Rate 18 18 18 Blood Pressure 126/68 105/57 L 125/71 06/11/18 08:00 Temperature 97.4 F L Pulse Rate 72 Respiratory Rate 18 Blood Pressure 123/64 Intake & Output 06/10/18 06/11/18 06/11/18 18:59 06:59 18:59 Weight 85 kg Result Diagrams: 06/11/18 06:00 Other Results: IV is out so can't get venofer Objective Remarks: GENERAL: Well-nourished, well-developed patient. CARDIOVASCULAR: Regular rate and rhythm without murmurs, gallops, or rubs. RESPIRATORY: Breath sounds equal bilaterally. No accessory muscle use. ABDOMEN/GI: Abdomen soft, non-tender, bowel sounds present. Incision: Clean, dry and intact. TAM Fundus: Firm, non-tender at umbilicus. GENITOURINARY: Light to moderate bleeding. EXTREMITIES: No cyanosis or edema, non-tender, without signs of DVT. Medications and IVs: Active Medications Citric Acid/Sodium Citrate (Sodium Citrate/Citric Acid Liq) 30 ml PO [employer] OPERATOR [facility] Stop: 06/14/18 11:14 Lactated Ringer's (Lr 1000 Ml Inj) 1,000 mls @ 150 mls/hr IV.CONT .Q6H40M [facility] Oxytocin (Pitocin 30 Units/Ns 500 Ml Premix) 30 units in 500 mls @ 100 mls/hr IV.SIG UNSCH PRN PRN Reason: Heavy bleeding Ibuprofen (Motrin) 800 mg PO Q8H PRN PRN Reason: cramping Last Admin: 06/11/18 07:41 Dose: 800 mg Ketorolac Tromethamine (Toradol Inj) 30 mg IM Q6H PRN PRN Reason: SEE LABEL COMMENTS Ondansetron HCl (Zofran Inj) 4 mg IV.PUSH Q6H PRN PRN Reason: NAUSEA OR VOMITING Oxycodone/Acetaminophen (Percocet 5/325 Mg) 1 tab PO Q4H PRN PRN Reason: PAIN SCALE 3 TO 5 Oxycodone/Acetaminophen (Percocet 5/325 Mg) 2 tab PO Q4H PRN PRN Reason: PAIN SCALE 6 TO 10 Senna/Docusate Sodium (Alivia-Colace) 2 tab PO Q12H PRN PRN Reason: CONSTIPATION Sodium Chloride (Ns Flush) 2 ml IV.FLUSH BID RACQUEL Last Admin: 06/10/18 21:07 Dose: Not Given Sodium Chloride (Ns Flush) 2 ml IV.FLUSH PRN PRN PRN Reason: FLUSH AFTER USING IV ACCESS Assessment and Plan - Diagnosis (1) Status post primary low transverse section Code(s): Z98.891 - History of uterine scar from previous surgery Status: Acute - Plan discussed circumcision, risks of post depression, blood clots in legs or lung, hemorrhage no history elevated BP will stay until saturday and get tam out before discharge. circumcision tomorrow or saturday
[2018-06-12] MEDS: Senna/Docusate Sodium 8.6/50 MG Tablet PO PRN ×2 (01:35→18:24)
--- NOTE | 2018-06-12 08:00 | P.PNOB ---
Subjective Post op day: 2 Interval history: no complaints, circ done this am, +flatus Objective Vital Signs/I&O: Vital Signs 06/11/18 08:00 06/11/18 20:00 06/12/18 07:55 Temperature 97.4 F L 98.9 F 98.1 F Pulse Rate 72 82 80 Respiratory Rate 18 18 20 Blood Pressure 123/64 122/82 114/79 Result Diagrams: 06/11/18 06:00 Objective Remarks: GENERAL: Well-nourished, well-developed patient. CARDIOVASCULAR: Regular rate and rhythm without murmurs, gallops, or rubs. RESPIRATORY: Breath sounds equal bilaterally. No accessory muscle use. ABDOMEN/GI: Abdomen soft, non-tender, bowel sounds present. Incision: Clean, dry and intact. tam Fundus: Firm, non-tender at umbilicus. GENITOURINARY: Light to moderate bleeding. EXTREMITIES: No cyanosis or edema, non-tender, without signs of DVT. 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PUSH Q6H PRN PRN Reason: NAUSEA OR VOMITING Oxycodone/Acetaminophen (Percocet 5/325 Mg) 1 tab PO Q4H PRN PRN Reason: PAIN SCALE 3 TO 5 Oxycodone/Acetaminophen (Percocet 5/325 Mg) 2 tab PO Q4H PRN PRN Reason: PAIN SCALE 6 TO 10 Polyethylene Glycol (Miralax) 17 gm PO DAILY [facility] Senna/Docusate Sodium (Alivia-Colace) 2 tab PO Q12H PRN PRN Reason: CONSTIPATION Last Admin: 06/12/18 01:35 Dose: 2 tab Sodium Chloride (Ns Flush) 2 ml IV.FLUSH BID RACQUEL Last Admin: 06/11/18 20:40 Dose: Not Given Sodium Chloride (Ns Flush) 2 ml IV.FLUSH PRN PRN PRN Reason: FLUSH AFTER USING IV ACCESS Assessment and Plan - Diagnosis (1) Status post primary low transverse section Code(s): Z98.891 - History of uterine scar from previous surgery Status: Acute - Plan discussed circumcision, risks of post depression, blood clots in legs or lung, hemorrhage no history elevated BP will stay until saturday and get tam out before discharge. circumcision today Discharge Planning: routine - Attending Attestation pt seen by me
[2018-06-12] MEDS: Ferrous Sulfate 325 MG Tablet PO SCH (09:28)
[2018-06-12] MEDS: Acetaminophen 325 MG Tablet PO PRN (12:39)
[2018-06-13] MEDS: Acetaminophen 325 MG Tablet PO PRN (01:40)
[2018-06-13] MEDS: Polyethylene Glycol 3350 17 GM Packet PO SCH ×2 (08:07→11:34)
[2018-06-13 08:16] VITALS: BP 126/83; PULSE 76; RESP 20; TEMP 98.3
--- NOTE | 2018-06-13 08:43 | P.PNOB ---
Subjective Post op day: 3 Interval history: POD#3, Doing well, plan d/c home , remove tam today Objective Vital Signs/I&O: Vital Signs 06/12/18 20:00 06/13/18 08:00 Temperature 98.1 F 98.3 F Pulse Rate 82 76 Respiratory Rate 18 20 Blood Pressure 123/81 126/83 Result Diagrams: 06/11/18 06:00 Objective Remarks: GENERAL: Well-nourished, well-developed patient. CARDIOVASCULAR: Regular rate and rhythm without murmurs, gallops, or rubs. RESPIRATORY: Breath sounds equal bilaterally. No accessory muscle use. ABDOMEN/GI: Abdomen soft, non-tender, bowel sounds present. Incision: Clean, dry and intact. Fundus: Firm, non-tender at umbilicus. GENITOURINARY: Light to moderate bleeding. EXTREMITIES: No cyanosis or edema, non-tender, without signs of DVT. 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 [facility] Stop: 06/14/18 11:14 Ferrous Sulfate (Ferosul) 325 mg PO DAILY [facility] Last Admin: 06/12/18 09:28 Dose: 325 mg Ibuprofen (Motrin) 800 mg PO Q8H PRN PRN Reason: cramping Last Admin: 06/13/18 01:41 Dose: 800 mg Ketorolac Tromethamine (Toradol Inj) 30 mg IM Q6H PRN PRN Reason: SEE LABEL COMMENTS Ondansetron HCl (Zofran Inj) 4 mg IV.PUSH Q6H PRN PRN Reason: NAUSEA OR VOMITING Oxycodone/Acetaminophen (Percocet 5/325 Mg) 1 tab PO Q4H PRN PRN Reason: PAIN SCALE 3 TO 5 Oxycodone/Acetaminophen (Percocet 5/325 Mg) 2 tab PO Q4H PRN PRN Reason: PAIN SCALE 6 TO 10 Polyethylene Glycol (Miralax) 17 gm PO DAILY [facility] Last Admin: 06/13/18 08:07 Dose: Not Given Senna/Docusate Sodium (Alivia-Colace) 2 tab PO Q12H PRN PRN Reason: CONSTIPATION Last Admin: 06/12/18 18:24 Dose: 2 tab Sodium Chloride (Ns Flush) 2 ml IV.FLUSH PRN PRN PRN Reason: FLUSH AFTER USING IV ACCESS Assessment and Plan - Diagnosis (1) Status post primary low transverse section Code(s): Z98.891 - History of uterine scar from previous surgery Status: Acute - Plan POD#3; Plan discharge home after removal of tam, RTO 1 week Discharge Planning: routine
[2018-06-13] MEDS: Ferrous Sulfate 325 MG Tablet PO SCH (11:34)
== END 2018-06-13 12:01 | disposition home or self-care (01) ==
LOC: H2E 10:07 → H1EA 14:54
PROVIDERS: ADMIT Obstetrics & Gynecology; ATTEND Obstetrics & Gynecology